=== PATIENT | male | born 2000 | race Two or more races ===

== ENCOUNTER 2024-08-07 11:00 | Outpatient (RCR) | payer MEDICAID, SELFPAY ==
--- NOTE | 2024-07-26 11:53 | PT.ODAYNRPT ---
PT Outpatient Daily Note OP Daily Note Outpatient Physical Therapy Treatment Date: 07/26/24 Visit Reasons: left knee pain Subjective: Pt's knee a little better. Pt does not have any concerns. Objective: Please see flow chart for lsit of ther ex performed Assessment: progressing with resistance exercises. Pt demonstrate improved quad control with step up exercises Plan: Continue with PT Length of Time (minutes) of Treatment: 30 Minutes Procedure Charges Therapeutic Exercise 30 minutes: Yes
--- NOTE | 2024-08-07 12:10 | PTNOTE_ITS ---
PT OP Progress/Discharge Note Date of Service: 08/07/24 Progress Note/DC Note Progress Note/Discharge Note: DC Note Patient Information Visit Reasons: left knee pain Medical Diagnosis: Left Knee Pain Treatment Dx #1: Left Knee Pain Service Discharge Date: 08/07/24 Status Subjective: Pt mention his left knee continues to hurt (03/28). Pt still has knee instability with intermittent pain based upon the activities. Pt has limitation with walkin g, standing, chores, work duties, and performing recreational activities Objective: Left Knee AROM: all motions are WNL Left Knee MMTs: grossly 4/5 Left Hip MMTs: grossly 4-/5 Assessment: Pt demonstrate functional knee mobility and strength, however, pain has not changed leading to difficulty with ADLs. Pt will no longer benefit from physical therapy due to minimal progression towards goals. Recommend knee MRI to rule in/out nature of pain. Pt was instructed on HEP last session and educated to continue exercises to maintain overall mobility. Pt performed all exercises safely, thank you for your referrals. Plan: D/C home with HEP and follow up with MD ACUNA Recommend knee MRI Procedure Charges Therapeutic Exercise 30 minutes: Yes
== END 2024-08-18 23:59 | disposition home or self-care (01) ==
LOC: CPTX 11:00
PROVIDERS: PCP Family Medicine; Referring Provider Family Medicine; Visit Provider Family Medicine
DX: M25.562 Pain in left knee (principal); M25.362 Other instability, left knee; R26.2 Difficulty in walking, not elsewhere classified; G89.29 Other chronic pain
CPT/HCPCS: 97110

== ENCOUNTER → 2024-09-22 | Outpatient (CLI) | payer MEDICAID, SELFPAY ==
--- NOTE | 2024-09-22 10:00 | XR_ITS ---
Exam: MRI knee without contrast, left Date and time of exam: September 22, 2024 1047 hrs. Indications: Anterior posterior knee pain with walking stiffness joint swelling beginning 3 years ago, worse after falling one year ago with injury to the knee Technique: Multiple axial, coronal, and sagittal sections on the knee have been obtained. T2-Weighted sagittal, fat-suppressed images, TR 3,500, TE 62, T2 weighted coronal fat-saturated images, TR 3,500, TE 62 Proton density sagittal sections, TR 1800, TE 31. T-1 weighted coronal images, TR 524, TE 13.0 Findings: Medial meniscus anterior horn intact. Medial meniscus, body is intact. Posterior horn medial meniscus intact. Lateral meniscus anterior horn is intact Lateral meniscus, body is intact Posterior horn lateral meniscus is intact Anterior cruciate ligament high-grade sprain versus complete tear Posterior cruciate ligament appears intact. Knee effusion is minimal. Quadriceps and patellar tendons appear intact. There is no evidence of tendinosis. Inflammatory change or fracture of Hoffa's fat pad is not seen. Medial patellar facet demonstrates no thinning. Lateral patellar facet cartilage demonstrates no thinning. Trochlear cartilage demonstrates no thinning. Marrow signal adequate. Medial collateral ligament appears intact. No meniscocapsular separation is seen. Illiotibial band and fibular collateral ligament are intact. Biceps femoris tendons appear intact. Medial femoral condylar articular cartilage demonstrates no thinning. Lateral femoral condylar articular cartilage demonstratesno thinning. Tibial plateau cartilage demonstrates no thinning. Impression: High-grade sprain versus complete tear anterior cruciate ligament
== END | disposition home or self-care (01) ==
PROVIDERS: PCP Family Medicine; Referring Provider Family Medicine; Visit Provider Family Medicine
DX: S86.912D Strain of unspecified muscle(s) and tendon(s) at lower leg level, left leg, subsequent encounter (principal); W19.XXXD Unspecified fall, subsequent encounter
CPT/HCPCS: 73721